=== PATIENT | male | born 1995 | race Two or more races ===

== ENCOUNTER 2025-03-17 13:20 | Emergency (ER) | payer OTHER ==
[~2025-03-17] VITALS: Ht 188 cm; Wt 159.6 kg
[2025-03-17 14:31] VITALS: BP 133/93; PULSE 130; RESP 20; TEMP 97; O2SAT 98
[2025-03-17] MEDS: LIDOCAINE W/ EPINEPHRINE 1% 20ML VIAL ID ONE (14:52)
[2025-03-17] MEDS ORDERED: DOXY-286 PO (15:51)
[2025-03-17] MEDS ORDERED: ACET500T58 PO (15:51)
--- NOTE | 2025-03-17 15:51 | ED.PDOC ---
History of Present Illness(SKN HPI Comments 29-year-old male with a history of diabetes who presents for a possible abscess to the left waistline. Onto started 7 days ago but reports worsening symptoms Aggravated a touch Has not tried [id number] medication Denies fevers chills nausea vomiting diarrhea or drainage from the affected side Chief Complaint: Abscess Time Seen by MD: 13:49 Primary Care Provider: MATEUS History of Present Illness: Nurses Notes, Medications, Allergies Allergies: Coded Allergies: NO KNOWN ALLERGIES (Unverified , 03/17/25) Home Meds Active Scripts Acetaminophen (Acetaminophen) 500 Mg Tab, 500 MG PO Q6HP PRN for 10 Days, #40 TAB 0 Refills Prov:MENDOZA GALVIN COINING PRESS OPERATOR 03/17/25 Doxycycline Hyclate (DOXYCYCLINE HYCLATE) 100 Mg Tab, 1 TAB PO BID for 7 Days, #14 TAB 0 Refills Prov:MENDOZA GALVIN COINING PRESS OPERATOR 03/17/25 Information Source: Patient Mode of Arrival: Ambulatory Past Medical History PAST MEDICAL HISTORY: DM Surgical History: Denies all surgeries Family History Family History: Reviewed,noncontributory to illness Social History Smoker: Non-Smoker Alcohol: Denies ETOH Use Drugs: Denies Drug Use All Other Systems: Reviewed and Negative (per hpi) Physical Exam General Appearance: No Apparent Distress, Normal HEENT: Normal ENT Inspection, Pharynx Normal, TMs Normal Neck: Full Range of Motion, Non-Tender, Normal, Normal Inspection Respiratory: Chest Non-Tender, Lungs Clear, No Accessory Muscle Use, No Respiratory Distress, Normal Breath Sounds Cardiovascular: No Murmur, No Gallop, Regular Rate/Rhythm Breast Exam: Deferred Gastrointestinal: No Organomegaly, Non Tender, No Pulsatile Mass, Normal Bowel Sounds, Soft Genitalia: Deferred Pelvic: Deferred Rectal: Deferred Extremities: No calf tenderness, Normal capillary refill, Normal inspection, Normal range of motion, Non-tender, No pedal edema Musculoskeletal : Apperance: Normal Neurologic: Alert, No Motor Deficits, Normal Affect, No Sensory Deficits Cerebellar Function: Normal Reflexes: Normal Skin: Dry, Normal Color, Warm Lymphatic: No Adenopathy Was a procedure done? Was a procedure done?: Yes Sedation Sedation?: No Incision and Drainage Incision and Drainage: Abscess Location Waistline Anesthetic: Lidocaine with Epi Preparation: Betadine, Saline Incision and Wound: Pus, Seroma, Irrigated, Packed Informed consent obtained: Yes Risks/benefits/alt described: Yes Images 1 - 2x2 fluctuant abscess. Mild surrounding erythema. Tenderness to palpation. Differential Diagnosis (INTG) Differential Diagnosis: Abrasion, Cellulitis Differential Diagnosis: Abscess X-Ray, Labs, Meds, VS Vital Signs Date Time Temp Pulse Resp B/P (MAP) Pulse Ox O2 Delivery O2 Flow Rate FiO2 03/17/25 14:31 130 20 98 Room Air 03/17/25 14:31 97.0 130 18 133/93 (106) 97 97.0 03/17/25 13:30 97.0 130 20 133/93 (106) 97 97.0 X-Ray, Labs, Meds, VS Comment This patient presents with signs and symptoms consistent with a abscess. The abscess is localized without any evidence of deep soft tissue infection based on physical examination. The patient required incision and drainage. Differential diagnosis considered but not limited to: abscess, folliculitis, cellulitis. I also considered deep space infection, necrotizing fasciitis, sepsis, however, this is less likely as the patient does not have rapid expanding erythema or pain out of proportion to suggest necrotizing fasciitis. There is no evidence of sepsis on both a review of their vitals and clinical exam. Procedure Note: Verbal informed consent was obtained from the patient. I discussed the indications, benefits, alternatives and complications to performing an incision and drainage. The patient understands the risks include, but are not limited to scarring, underlying structure injury, bleeding, nerve injury, new infection, and resultant disability. The skin overlying the abscess was prepared with chlorahexidine. The skin surrounding the abscess was locally anesthetized using 1% Lidocaine with EPI An incision using a number 11 blade scalpel was made overlying the abscess. The incision was 1 cm long. Loculations were bluntly dissected using a hemostat. Careful exploration of the abscess cavity demonstrated no foreign body. The abscess cavity was packed with sterile packing. The wound was then dressed with sterile gauze. The wound was hemostatic at the conclusion of the procedure. The patient did not appear to suffer any complications as a result of the procedure. The patient was given ABx and will follow up in two days for a wound check or return to the ER sooner if it worsens. The patient was counseled in regard to the diagnosis and management of the condition and verbalized understanding of this. The patient understands to return to the ER or seek immediate medical attention if the symptoms worsen. Time of 1ST Reevaluation: 15:49 Reevaluation 1ST: Improved Patient Education/Counseling: Diagnosis, Treatment Family Education/Counseling: Diagnosis, Treatment Departure 1 Departure Time of Disposition: 15:49 Impression: Primary Impression: Abscess Disposition: 01 HOME / SELF CARE / HOMELESS Condition: Fair e-Prescriptions Acetaminophen (Acetaminophen) 500 Mg Tab 500 MG PO Q6HP PRN for 10 Days, #40 TAB 0 Refills Prov: MENDOZA GALVIN NP 03/17/25 Doxycycline Hyclate (DOXYCYCLINE HYCLATE) 100 Mg Tab 1 TAB PO BID for 7 Days, #14 TAB 0 Refills Prov: MENDOZA GALVIN NP 03/17/25 Critical Care Note Critical Care Time?: No Stability Stability form required: No Heart Score Heart Score: Heart Score Response (Comments) Value History N/A 0 EKG N/A 0 Age N/A 0 Risk Factors N/A 0 Troponin N/A 0 Total 0 MENDOZA GALVIN NP Mar 17, 2025 15:51
== END 2025-03-17 16:06 | disposition home or self-care (01) ==
LOC: ER 13:25
DX: L02.219 Cutaneous abscess of trunk, unspecified (principal); E11.9 Type 2 diabetes mellitus without complications; Z79.899 Other long term (current) drug therapy
CPT/HCPCS: 10060

== ENCOUNTER 2025-03-19 07:13 | Emergency (ER) | payer OTHER ==
[~2025-03-19] VITALS: Ht 188 cm; Wt 158.4 kg
[~2025-03-19 07:13] MED LIST: ACET500T58 PO; DOXY-286 PO
[2025-03-19 07:34] VITALS: BP 132/89; PULSE 100; RESP 20; TEMP 97.8; O2SAT 97
--- NOTE | 2025-03-19 08:05 | ED.PDOC ---
History of Present Illness(SKN HPI Comments 29-year-old male seen recently for area I&D presents for wound check. No other complaint. Picked up his antibiotic yesterday Chief Complaint: Wound Check Time Seen by MD: 07:20 Primary Care Provider: MATEUS History of Present Illness: Nurses Notes, Medications, Allergies Allergies: Coded Allergies: NO KNOWN ALLERGIES (Unverified , 03/17/25) Home Meds Active Scripts Acetaminophen (Acetaminophen) 500 Mg Tab, 500 MG PO Q6HP PRN for 10 Days, #40 TAB 0 Refills Prov:MENDOZA GALVIN RESTORATIVE CARE TECHNICIAN 03/17/25 Doxycycline Hyclate (DOXYCYCLINE HYCLATE) 100 Mg Tab, 1 TAB PO BID for 7 Days, #14 TAB 0 Refills Prov:MENDOZA GALVIN RESTORATIVE CARE TECHNICIAN 03/17/25 Information Source: Patient Mode of Arrival: Ambulatory Past Medical History PAST MEDICAL HISTORY: DM Surgical History: Denies all surgeries Family History Family History: Reviewed,noncontributory to illness Social History Smoker: Non-Smoker Alcohol: Denies ETOH Use Drugs: Denies Drug Use All Other Systems: Reviewed and Negative (Per HPI) Physical Exam General Appearance: No Apparent Distress, Normal HEENT: Normal ENT Inspection, Pharynx Normal, TMs Normal Neck: Full Range of Motion, Non-Tender, Normal, Normal Inspection Respiratory: Chest Non-Tender, Lungs Clear, No Accessory Muscle Use, No Respiratory Distress, Normal Breath Sounds Cardiovascular: No Edema, No JVD, No Murmur, No Gallop, Normal Peripheral Pulses, Regular Rate/Rhythm Breast Exam: Deferred Gastrointestinal: No Organomegaly, Non Tender, No Pulsatile Mass, Normal Bowel Sounds, Soft Genitalia: Deferred Pelvic: Deferred Rectal: Deferred Extremities: No calf tenderness, Normal capillary refill, Normal inspection, Normal range of motion, Non-tender, No pedal edema Musculoskeletal : Apperance: Normal Neurologic: Alert, air tester II-XII nml as Tested, No Motor Deficits, Normal Affect, Normal Mood, No Sensory Deficits Cerebellar Function: Normal Reflexes: Normal Skin: Dry, Normal Color, Warm, Wounds (The surrounding erythema to the incision site. Nontender to palpation. No signs of cellulitis at this time) Lymphatic: No Adenopathy Was a procedure done? Was a procedure done?: No Differential Diagnosis (INTG) Differential Diagnosis: Other X-Ray, Labs, Meds, VS Vital Signs Date Time Temp Pulse Resp B/P (MAP) Pulse Ox O2 Delivery O2 Flow Rate FiO2 03/19/25 07:34 97.8 100 20 132/89 (103) 97 97.8 03/19/25 07:34 100 20 97 Room Air 03/19/25 07:22 97.8 100 20 132/89 (103) 97 97.8 X-Ray, Labs, Meds, VS Comment Patient was rechecked for abscess and had been previously incised and drained with packing placed. Examination shows no evidence of cellulitis, lymphangitis, systemic infection or any other process requiring immediate medical or surgical intervention at this time. The packing was removed and repacked and bandages were changed. Advised to follow up in 48 hours for wound check or sooner if symptoms worsen Time of 1ST Reevaluation: 08:04 Reevaluation 1ST: Improved Patient Education/Counseling: Diagnosis, Treatment Family Education/Counseling: Diagnosis, Treatment Departure 1 Departure Time of Disposition: 08:05 Impression: Primary Impression: Abscess Disposition: 01 HOME / SELF CARE / HOMELESS Condition: Stable Discharged With: Self Critical Care Note Critical Care Time?: No Stability Stability form required: No Heart Score Heart Score: Heart Score Response (Comments) Value History N/A 0 EKG N/A 0 Age N/A 0 Risk Factors N/A 0 Troponin N/A 0 Total 0 MENDOZA GALVIN NP Mar 19, 2025 08:05
== END 2025-03-19 08:10 | disposition home or self-care (01) ==
LOC: ER 07:13
DX: L02.219 Cutaneous abscess of trunk, unspecified (principal); E11.9 Type 2 diabetes mellitus without complications; Z48.00 Encounter for change or removal of nonsurgical wound dressing

== ENCOUNTER 2025-03-21 07:03 | Emergency (ER) | payer OTHER ==
[~2025-03-21] VITALS: Ht 188 cm; Wt 160.4 kg
[2025-03-21 07:50] VITALS: BP 121/73; PULSE 84; RESP 16; TEMP 97.7; O2SAT 96
--- NOTE | 2025-03-21 07:52 | ED.PDOC ---
History of Present Illness HPI Comments A 29 YEAR OLD MALE PRESENTS TO THE ED WITH COMPLAINT OF WOUND RECHECKED. PATIENT STATES HE HAD AN ABSCESS DRAINED ON HIS LEFT GROIN REGION 4 DAYS AGO AND IS HERE IN THE ED TO HAVE THIS WOUND RECHECKED. PATIENT DENIES FEVER, CHILLS, SHORTNESS OF BREATH, CHEST PAIN, ABDOMINAL PAIN, NAUSEA, VOMITING, HEADACHE, OR OTHER COMPLAINTS. NO OTHER SYMPTOMS OR MODIFYING FACTORS AT THIS TIME. PATIENT IS ALERT, ORIENTED X 4, AND HAS STEADY GAIT. Chief Complaint: Wound Check Time Seen by MD: 07:31 Primary Care Provider: MATEUS Reviewed Notes: Nurses Notes, Medications, Allergies Allergies: Coded Allergies: NO KNOWN ALLERGIES (Unverified , 03/17/25) Home Meds Active Scripts Acetaminophen (Acetaminophen) 500 Mg Tab, 500 MG PO Q6HP PRN for 10 Days, #40 TAB 0 Refills Prov:MENDOZA GALVIN NP 03/17/25 Doxycycline Hyclate (DOXYCYCLINE HYCLATE) 100 Mg Tab, 1 TAB PO BID for 7 Days, #14 TAB 0 Refills Prov:MENDOZA GALVIN NP 03/17/25 Information Source: Patient Mode of Arrival: Ambulatory Severity: Mild Timing: Days Duration: Since onset, Days Prehospital treatment: None Medication Refill: For: Other (WOUND RECHECK) Past Medical History PAST MEDICAL HISTORY: DM Surgical History: Denies all surgeries Family History Family History: Reviewed,noncontributory to illness Social History Smoker: Non-Smoker Alcohol: Denies ETOH Use Drugs: Denies Drug Use Lives In: Home Constitutional: denies: chills, diaphoresis, fatigue, fever, malaise, sweats, weakness, others EENTM: denies: blurred vision, double vision, ear bleeding, ear discharge, ear drainage, ear pain, ear ringing, eye pain, eye redness, hearing loss, mouth pain, mouth swelling, nasal discharge, nose bleeding, nose congestion, nose p ain, photophobia, tearing, throat pain, throat swelling, voice changes, others Respiratory: denies: cough, hemoptysis, orthopnea, SOB at rest, shortness of breath, SOB with excertion, stridor, wheezing, others Cardiovascular: denies: chest pain, dizzy spells, diaphoresis, Dyspnea on exertion, edema, irregular heart beat, left arm pain, lightheadedness, palpitations, PND, syncope, others Gastrointestinal: denies: abdomen distended, abdominal pain, blood streaked bowels, constipated, diarrhea, dysphagia, difficulty swallowing, hematemesis, melena, nausea, poor appetite, poor fluid intake, rectal bleeding, rectal pain, vomiting, others Genitourinary: denies: burning, dysuria, flank pain, frequency, hematuria, incontinence, penile discharge, penile sore, pain, testicle pain, testicle swelling, urgency, others Neurological: denies: dizziness, fainting, headache, left sided numbness, left sided weakness, numbness, paresthesia, pre-existing deficit, right sided numbness, right sided weakness, seizure, speech problems, tingling, tremors, weakness, others Musculoskeletal: denies: back pain, gout, joint pain, joint swelling, muscle pain, muscle stiffness, neck pain, others Integumetry: reports: wounds (LEFT GROIN REGION ); denies: bruises, change in color, change in hair/nails, dryness, laceration, lesions, lumps, rash, others Allergic/Immunocompromised: denies: Difficulty Healing, Frequent Infections, Hives, Itching, others Hematologic/Lymphatic: denies: anemia, blood clots, easy bleeding, easy bruising, swollen glands, others Endocrine: denies: excessive hunger, excessive sweating, excessive thirst, excessive urination, flushing, intolerance to cold, intolerance to heat, unexplained weight gain, unexplained weight loss, others Psychiatric: denies: anxiety, bipolar disorder, depression, hopeless, panic disorder, schizophrenia, sleepless, suicidal, others All Other Systems: Reviewed and Negative Physical Exam General Appearance: No Apparent Distress, Obese HEENT: Normal ENT Inspection, PERRL/EOMI, Pharynx Normal, TMs Normal Neck: Full Range of Motion, Non-Tender, Normal, Normal Inspection Respiratory: Chest Non-Tender, Lungs Clear, No Accessory Muscle Use, No Respiratory Distress, Normal Breath Sounds Cardiovascular: No Edema, No JVD, No Murmur, No Gallop, Normal Peripheral Pulses, Regular Rate/Rhythm Breast Exam: Deferred Gastrointestinal: No Organomegaly, Non Tender, No Pulsatile Mass, Normal Bowel Sounds, Soft Genitalia: Deferred Pelvic: Deferred Rectal: Deferred Extremities: No calf tenderness, Normal capillary refill, Normal inspection, Normal range of motion, Non-tender, No pedal edema Musculoskeletal : Apperance: Normal Neurologic: Alert, prehemmer II-XII nml as Tested, No Motor Deficits, Normal Affect, Normal Mood, No Sensory Deficits Cerebellar Function: Normal Reflexes: Normal Skin: Dry, Normal Color, Warm, Wounds (LEFT GROIN REGION, HEALING ABSCESS, NO REDNESS AND DRAINAGE. ) Peripheral Pulses: 2+ carotid (R), 2+ carotid (L) Lymphatic: No Adenopathy Was a procedure done? Was a procedure done?: No Differential Dx Considerations may include: WOUND RECHECK, WOUND INFECTION X-Ray, Labs, Meds, VS Vital Signs Date Time Temp Pulse Resp B/P (MAP) Pulse Ox O2 Delivery O2 Flow Rate FiO2 03/21/25 07:50 97.7 84 16 121/73 (89) 96 97.7 03/21/25 07:50 84 16 96 Room Air 03/21/25 07:18 97.7 84 16 121/73 (89) 96 97.7 X-Ray, Labs, Meds, VS Comment EXTERNAL MEDICAL RECORDS REVIEWED: [NONE] INDEPENDENT HISTORIANS: [NONE] SOCIAL DETERMINANTS OF HEALTH: [NONE] LABS ORDERED: NONE REVIEWED AND INTERPRETED RESULTS: NONE IMAGING ORDERED: NONE TREATMENTS ORDERED: NONE PROCEDURES PERFORMED: NONE CRITICAL CARE TIME: NONE I HAVE DISCUSSED THE PATIENT WITH THE ATTENDING PHYSICIAN DR. PENA AND HE AGRE ES WITH THE PATIENT'S PLAN OF CARE AND DISPOSITION. BASED ON HISTORY OF PRESENT ILLNESS, AND PHYSICAL EXAM, PATIENT WILL BE DIS CHARGED HOME. SHARED DECISION MAKING: PATIENT INSTRUCTED TO FOLLOW UP WITH PRIMARY CARE PROVIDER IN 1-2 DAYS FOR RE-EVALUATION OF SYMPTOMS. PATIENT VERBALIZES UNDERSTANDING TO RETURN TO ED FOR NEW OR WORSENING SYMPTOMS OR IF FOLLOW UP WITH PCP CANNOT BE OBTAINED. PATIENT FEELS COMFORTABLE GOING HOME AT THIS TIME. ALL QUESTIONS ADDRESSED AT TIME OF DISCHARGE. Time of 1ST Reevaluation: 08:12 Reevaluation 1ST: Improved Patient Education/Counseling: Diagnosis, Treatment, Need For Follow Up Family Education/Counseling: Diagnosis, Treatment, Need For Follow Up Medical Screening: No EMC Exist At This Time Departure 1 Departure Time of Disposition: 08:20 Impression: Primary Impression: Encounter for wound re-check Disposition: 01 HOME / SELF CARE / HOMELESS Condition: Stable Additional Instructions: FOLLOW-UP WITH PCP IN 1 TO 2 DAYS. RETURN TO ED FOR ANY NEW OR WORSENING SYMPTOMS. Discharged With: Self Critical Care Note Critical Care Time?: No Stability Stability form required: No I personally scribed for CRISTIAN AGUIRRE ([email or web address]) on 03/21/25 at 07:52. Electronically submitted by Maicol Sorto ([email or web address]). CRISTIAN AGUIRRE March 21, 2025 07:52
== END 2025-03-21 08:12 | disposition home or self-care (01) ==
LOC: ER 07:03
DX: L02.214 Cutaneous abscess of groin (principal); E11.9 Type 2 diabetes mellitus without complications; Z48.00 Encounter for change or removal of nonsurgical wound dressing